=== PATIENT | male | born 1995 | race Two or more races ===

== ENCOUNTER 2022-08-29 18:05 | Emergency (ER) | payer OTHER ==
[~2022-08-29] VITALS: Ht 167.6 cm; Wt 108.8 kg
[2022-08-29 19:00] VITALS: BP 125/81
[2022-08-29] MEDS ORDERED: TETRACAINE HCL 0.5% OPTH(EYE) SOLN 4ML RIGHTEYE ONE (22:30)
[2022-08-29] MEDS ORDERED: FLUORESCEIN SOD OPTH TEST STRIP RIGHTEYE ONE (22:30)
[2022-08-29] MEDS ORDERED: ERY05OO OP (22:33)
== END 2022-08-29 22:49 | disposition home or self-care (01) ==
LOC: ER 18:07
DX: S05.01XA Injury of conjunctiva and corneal abrasion without foreign body, right eye, initial encounter (principal); Z88.0 Allergy status to penicillin; X58.XXXA Exposure to other specified factors, initial encounter; Y93.89 Activity, other specified; Y92.89 Other specified places as the place of occurrence of the external cause; Y99.8 Other external cause status